=== PATIENT | male | born 1975 | race Caucasian/White ===

== ENCOUNTER → 2019-05-13 | Outpatient (CLI) | payer OTHER | END | disposition home or self-care (01) | LOC: LAB SHORT 18:25 → LAB EV 18:25 | DX: R50.9 Fever, unspecified (principal) | CPT/HCPCS: 87081 ==

== ENCOUNTER 2019-07-07 17:40 | Emergency (ER) | payer OTHER ==
[~2019-07-07] VITALS: Ht 177.8 cm; Wt 81.7 kg
[2019-07-07] MEDS ORDERED: Percocet 7.5-31 EACH PO (18:54)
== END 2019-07-07 19:08 | disposition home or self-care (01) ==
LOC: ER 17:40
DX: S22.42XA Multiple fractures of ribs, left side, initial encounter for closed fracture (principal); V86.59XA Driver of other special all-terrain or other off-road motor vehicle injured in nontraffic accident, initial encounter
CPT/HCPCS: 71101; 99284-25; A9270

== ENCOUNTER → 2021-01-08 | Outpatient (CLI) | payer OTHER ==
[~2021-01-08] MED LIST: PRED20 PO; Percocet 7.5-31 EACH PO; Tessalon200 MG PO; Ventolin/Prove6.7 GM INH
[2021-01-08 19:23] LABS: BASOPHILS ABSOLUTE AUTO 0.01 K/mm3 (0.00-0.23); BASOPHILS PERCENT AUTO 0 % (0-2); EOSINOPHILS PERCENT AUTO 0 % (0-6); Hematocrit 40.4 % (37.0-53.0); Hemoglobin 14.3 g/dL (13.5-17.5); IMMATURE GRAN ABSOLUTE AUTO 0.01 K/mm3 (0.00-0.10); IMMATURE GRAN PERCENT AUTO 0 % (0-1); LYMPHOCYTES ABSOLUTE AUTO 0.81 K/mm3 (0.84-5.20); LYMPHOCYTES PERCENT AUTO 13 % (21-46); MONOCYTES ABSOLUTE AUTO 0.26 K/mm3 (0.16-1.47); MONOCYTES PERCENT AUTO 4 % (4-13); Mean Corpuscular HGB Conc 35.4 g/dL (31.5-36.5); Mean Corpuscular Volume 88 fL (80-100); Mean Platelet Volume 9.1 fL (9.1-12.4); NEUTROPHILS ABSOLUTE AUTO 5.07 K/mm3 (1.96-9.15); NEUTROPHILS PERCENT AUTO 82 % (41-73); Platelet Count 165 K/mm3 (150-400); RDW Coefficient Variation 11.9 % (11.7-14.2); Red Blood Cell Count 4.61 M/mm3 (4.30-5.90); White Blood Cell Count 6.16 K/mm3 (4.00-11.30)
[2021-01-08 19:28] LABS: Alanine Aminotransfer (ALT/SGP 29 U/L (12-78); Albumin, Blood 3.4 g/dL (3.4-5.0); Albumin/Globulin Ratio 0.8 (0.8-1.8); Alk Phos 57 U/L (40-126); Anion Gap 5 mmol/L (6-16); Aspartate Aminotrans (AST/SGOT 27 U/L (12-37); Bilirubin, Total 0.8 mg/dL (0.1-1.0); Blood Urea Nitrogen 12 mg/dL (8-24); Bun/Creatinine Ratio 10.2 (12.0-20.0); CO2, Blood 29 mmol/L (21-32); Calcium, Blood 8.1 mg/dL (8.5-10.1); Chloride, Blood 96 mmol/L (98-108); Creatinine, Blood 1.18 mg/dL (0.60-1.20); Globulin, Blood 4.2 g/dL (2.2-4.0); Glomerular Filtration Rate >60 (60-); Glucose, Blood 134 mg/dL (70-99); Sodium, Blood 130 mmol/L (136-145); Total Protein, Blood 7.6 g/dL (6.4-8.2)
== END | disposition home or self-care (01) ==
LOC: LAB 19:14 → LAB SHORT 19:14
PROVIDERS: Physician Assistant
DX: U07.1 COVID-19 (principal); J12.82 Pneumonia due to coronavirus disease 2019
CPT/HCPCS: 80053; 85025; 85379

== ENCOUNTER 2021-01-10 09:07 | Inpatient (IN) | payer OTHER ==
[~2021-01-10] VITALS: Ht 177.8 cm; Wt 88.1 kg
[~2021-01-10 09:07] MED LIST changes: -PRED20 PO; -Tessalon200 MG PO; -Ventolin/Prove6.7 GM INH
[2021-01-10] MEDS ORDERED: Ventolin/Prove6.7 GM INH (09:50)
[2021-01-10] MEDS ORDERED: Tessalon200 MG PO (09:50)
[2021-01-10] MEDS ORDERED: PRED20 PO (09:51)
[2021-01-10 10:13] LABS: BASOPHILS ABSOLUTE AUTO 0.01 K/mm3 (0.00-0.23); BASOPHILS PERCENT AUTO 0 % (0-2); EOSINOPHILS PERCENT AUTO 0 % (0-6); Hematocrit 38.7 % (37.0-53.0); Hemoglobin 13.6 g/dL (13.5-17.5); IMMATURE GRAN ABSOLUTE AUTO 0.03 K/mm3 (0.00-0.10); IMMATURE GRAN PERCENT AUTO 0 % (0-1); LYMPHOCYTES ABSOLUTE AUTO 1.24 K/mm3 (0.84-5.20); LYMPHOCYTES PERCENT AUTO 13 % (21-46); MONOCYTES ABSOLUTE AUTO 0.44 K/mm3 (0.16-1.47); MONOCYTES PERCENT AUTO 5 % (4-13); Mean Corpuscular HGB 31.4 pg (26.0-34.0); Mean Corpuscular HGB Conc 35.1 g/dL (31.5-36.5); Mean Corpuscular Volume 89 fL (80-100); Mean Platelet Volume 8.7 fL (9.1-12.4); NEUTROPHILS ABSOLUTE AUTO 8.05 K/mm3 (1.96-9.15); NEUTROPHILS PERCENT AUTO 82 % (41-73); Platelet Count 196 K/mm3 (150-400); RDW Coefficient Variation 11.5 % (11.7-14.2); RDW Standard Deviation 37.2 fL (35.1-46.3); Red Blood Cell Count 4.33 M/mm3 (4.30-5.90); White Blood Cell Count 9.77 K/mm3 (4.00-11.30)
[2021-01-10 10:35] LABS: Alanine Aminotransfer (ALT/SGP 27 U/L (12-78); Albumin/Globulin Ratio 0.7 (0.8-1.8); Alk Phos 61 U/L (50-136); Anion Gap 7 mmol/L (6-16); Aspartate Aminotrans (AST/SGOT 31 U/L (12-37); Bilirubin, Total 0.7 mg/dL (0.1-1.0); Blood Urea Nitrogen 17 mg/dL (8-24); Bun/Creatinine Ratio 19.5 (12.0-20.0); CO2, Blood 26 mmol/L (21-32); Calcium, Blood 8.3 mg/dL (8.5-10.1); Chloride, Blood 101 mmol/L (98-108); Creatinine, Blood 0.87 mg/dL (0.60-1.20); Globulin, Blood 4.1 g/dL (2.2-4.0); Glomerular Filtration Rate >60 (60-); Glucose, Blood 123 mg/dL (70-99); Potassium, Blood 3.8 mmol/L (3.5-5.5); Sodium, Blood 134 mmol/L (136-145); Total Protein, Blood 7.1 g/dL (6.4-8.2); Troponin I <0.015 ng/mL (0.000-0.040)
--- NOTE | 2021-01-10 17:47 | NUR ---
SHIFT SUMMARY PT IS SITTING UP IN BED ON 9L OF 02 HIGHFLOW SATTING 97%. GOT UP TO WALK TO THE BATHROOM ON 02 AND DROPPED TO 80% AND DIZZY. O2 TURNED UP FROM 7L TO 9L TO COMPENSATE. PT VERBALIZED ANXIETY ABOUT NOT BEING ABLE TO CATCH HIS BREATH AND CHEST PAIN/TIGHTNESS, BUT FELT MORE COMFORTABLE ON 9L. PT EDUCATED ON HYPEROXYGENATION AND AGREES TO HAVE 02 MOVED DOWN WHEN HE IS CALM. WILL CONTINUE TO MONITOR
[2021-01-11 04:51] LABS: BASOPHILS PERCENT AUTO 0 % (0-2); EOSINOPHILS PERCENT AUTO 0 % (0-6); Hematocrit 36.5 % (37.0-53.0); Hemoglobin 12.7 g/dL (13.5-17.5); IMMATURE GRAN ABSOLUTE AUTO 0.03 K/mm3 (0.00-0.10); IMMATURE GRAN PERCENT AUTO 0 % (0-1); LYMPHOCYTES ABSOLUTE AUTO 0.88 K/mm3 (0.84-5.20); LYMPHOCYTES PERCENT AUTO 12 % (21-46); MONOCYTES PERCENT AUTO 6 % (4-13); Mean Corpuscular HGB 31.4 pg (26.0-34.0); Mean Corpuscular HGB Conc 34.8 g/dL (31.5-36.5); Mean Corpuscular Volume 90 fL (80-100); Mean Platelet Volume 9.1 fL (9.1-12.4); NEUTROPHILS ABSOLUTE AUTO 5.78 K/mm3 (1.96-9.15); NEUTROPHILS PERCENT AUTO 82 % (41-73); Platelet Count 233 K/mm3 (150-400); RDW Coefficient Variation 11.4 % (11.7-14.2); RDW Standard Deviation 37.8 fL (35.1-46.3); Red Blood Cell Count 4.05 M/mm3 (4.30-5.90); White Blood Cell Count 7.09 K/mm3 (4.00-11.30)
[2021-01-11 05:13] LABS: Alanine Aminotransfer (ALT/SGP 30 U/L (12-78); Albumin, Blood 2.7 g/dL (3.4-5.0); Albumin/Globulin Ratio 0.6 (0.8-1.8); Alk Phos 62 U/L (50-136); Anion Gap 3 mmol/L (6-16); Aspartate Aminotrans (AST/SGOT 30 U/L (12-37); Bilirubin, Total 0.6 mg/dL (0.1-1.0); Blood Urea Nitrogen 12 mg/dL (8-24); Bun/Creatinine Ratio 14.4 (12.0-20.0); CO2, Blood 30 mmol/L (21-32); Calcium, Blood 7.8 mg/dL (8.5-10.1); Chloride, Blood 101 mmol/L (98-108); Creatinine, Blood 0.84 mg/dL (0.60-1.20); Globulin, Blood 4.2 g/dL (2.2-4.0); Glomerular Filtration Rate >60 (60-); Glucose, Blood 120 mg/dL (70-99); Sodium, Blood 134 mmol/L (136-145); Total Protein, Blood 6.9 g/dL (6.4-8.2)
--- NOTE | 2021-01-11 06:07 | NUR ---
SHIFT SUMMARY PT IS A 45 Y/O MALE, ADMITTED FOR ACUTE HYPOXEMIC RESPIRATORY FAILURE R/T COVID-19. HE IS A&O X 4, 1PA TO THE BSC THOUGH VERY DYSPNEIC WITH EXERTION. CURRENTLY ON 12L O2 VIA NC, UP FROM 9L AT STAFT OF SHIFT, SATTING > 90%. VITAL SIGNS OTHERWISE STABLE. PT HAS INTERMITTENT COUGHING FITS, MEDICATED ONCE WITH PRN ROBITUSSIN. NO C/O ACUTE PAIN OR NAUSEA. PT'S UPDATED ON PT STATUS. NO OTHER ACUTE CHANGES IN PT CONDITION NOTED. WILL CONTINUE TO MONITOR AND TREAT PER EMAR UNTIL HAND OFF TO DAY SHIFT RN.
--- NOTE | 2021-01-11 10:23 | NUR ---
REPORTED TO BROTHER RIP [phone]
--- NOTE | 2021-01-11 15:06 | NUR ---
EDUCATED ON IS USE, PATIENT VERY HESITANT TO BREATH DEEP OR COUGH, THE IS WAS FAILED, PATIENT WAS UNABLE TO BREATH IN
[2021-01-12 05:44] LABS: BASOPHILS ABSOLUTE AUTO 0.01 K/mm3 (0.00-0.23); BASOPHILS PERCENT AUTO 0 % (0-2); EOSINOPHILS PERCENT AUTO 0 % (0-6); Hemoglobin 12.7 g/dL (13.5-17.5); Mean Corpuscular HGB 30.4 pg (26.0-34.0); Mean Corpuscular HGB Conc 34.3 g/dL (31.5-36.5); Mean Corpuscular Volume 89 fL (80-100); Mean Platelet Volume 9.1 fL (9.1-12.4); Platelet Count 316 K/mm3 (150-400); RDW Coefficient Variation 11.3 % (11.7-14.2); RDW Standard Deviation 36.2 fL (35.1-46.3); Red Blood Cell Count 4.18 M/mm3 (4.30-5.90)
[2021-01-12 05:52] LABS: IMMATURE GRAN ABSOLUTE AUTO 0.05 K/mm3 (0.00-0.10); IMMATURE GRAN PERCENT AUTO 1 % (0-1); LYMPHOCYTES ABSOLUTE AUTO 1.52 K/mm3 (0.84-5.20); LYMPHOCYTES PERCENT AUTO 16 % (21-46); MONOCYTES ABSOLUTE AUTO 0.92 K/mm3 (0.16-1.47); MONOCYTES PERCENT AUTO 10 % (4-13); NEUTROPHILS PERCENT AUTO 73 % (41-73)
[2021-01-12 06:16] LABS: Alanine Aminotransfer (ALT/SGP 32 U/L (12-78); Albumin, Blood 2.7 g/dL (3.4-5.0); Albumin/Globulin Ratio 0.7 (0.8-1.8); Alk Phos 56 U/L (50-136); Anion Gap 3 mmol/L (6-16); Aspartate Aminotrans (AST/SGOT 22 U/L (12-37); Bilirubin, Total 0.7 mg/dL (0.1-1.0); Blood Urea Nitrogen 15 mg/dL (8-24); Bun/Creatinine Ratio 16.9 (12.0-20.0); CO2, Blood 30 mmol/L (21-32); Calcium, Blood 8.4 mg/dL (8.5-10.1); Chloride, Blood 100 mmol/L (98-108); Creatinine, Blood 0.89 mg/dL (0.60-1.20); Globulin, Blood 3.8 g/dL (2.2-4.0); Glomerular Filtration Rate >60 (60-); Glucose, Blood 110 mg/dL (70-99); Sodium, Blood 133 mmol/L (136-145); Total Protein, Blood 6.5 g/dL (6.4-8.2)
[2021-01-12 06:37] LABS: BASOPHILS PERCENT MAN 0 % (0-2); EOSINOPHILS PERCENT MAN 0 % (0-6); LYMPHOCYTES ABSOLUTE MAN 1.02 K/mm3 (0.84-5.20); LYMPHOCYTES PERCENT MAN 11 % (21-46); MONOCYTES ABSOLUTE MAN 0.46 K/mm3 (0.16-1.47); MONOCYTES PERCENT MAN 5 % (4-13); NEUTROPHILS ABSOLUTE MAN 7.81 K/mm3 (1.96-9.15); SEG NEUTROPHILS PERCENT MAN 84 % (41-73); TOTAL CELLS COUNTED 100
--- NOTE | 2021-01-12 06:50 | NUR ---
45 byear old Male with covid 19 pneumonia hypoxia continues with BIOXX & 12 l high flow adequate to keep sats greater than 90%. Medicated for anxiety and insomnia at HS with 0.5 mg IV ativian & melatonin with good relief. IS & flutter enc. Support offered. PT reports too weak & deconditioned to ambulate.
--- NOTE | 2021-01-12 19:01 | NUR ---
Alert and oriented x3 , continue on high oxygen at 10L , 02sat at 76-100% , no SOB noted. PT/OT REPORTED significant improvement.Denies any headache , fever and SOB. CONTINUE to monitor.
--- NOTE | 2021-01-13 03:17 | NUR ---
45 year old PT with covid 19 pneumonia & hypoxia. Has wireless bioxx & weaned to 7 liters on day shift. Rust colored sputum, cough med helpful. PT able to be weaned to 4 l high flow o2 & PT has more effective resp pattern. Using IS & flutter. PT has decreased anxiety, medicated x 1 with ativan 0.5 mg IV. Working with PT & practicing exersizes at bedside as instucted. PT has personal sat monitor & has keeps pulse between 90& 95%. Nicanor diet & activity. HX of multiple broken ribs years ago. Recieving IV remdesiver
[2021-01-13 05:11] LABS: BASOPHILS ABSOLUTE AUTO 0.02 K/mm3 (0.00-0.23); BASOPHILS PERCENT AUTO 0 % (0-2); EOSINOPHILS ABSOLUTE AUTO 0.01 K/mm3 (0.00-0.68); EOSINOPHILS PERCENT AUTO 0 % (0-6); Hematocrit 37.2 % (37.0-53.0); Hemoglobin 12.9 g/dL (13.5-17.5); Mean Corpuscular HGB 30.6 pg (26.0-34.0); Mean Corpuscular HGB Conc 34.7 g/dL (31.5-36.5); Mean Corpuscular Volume 88 fL (80-100); Mean Platelet Volume 9.3 fL (9.1-12.4); Platelet Count 349 K/mm3 (150-400); RDW Coefficient Variation 11.3 % (11.7-14.2); RDW Standard Deviation 36.1 fL (35.1-46.3); Red Blood Cell Count 4.22 M/mm3 (4.30-5.90); White Blood Cell Count 9.69 K/mm3 (4.00-11.30)
--- NOTE | 2021-01-13 05:14 | NUR ---
had weaned PT back to 3 l high flow nasal cannula using bioxx. PT tolerated of around 3 hours then CO air hunger. Increased oxygen to 5 l high flow then gave PT ativan IV with immed helpful effect. Cough med also given. PT resting quietly. sent several packages of chocolate for staff. PT tolerating activity & diet, anxiety & air hunger controlled. Tolerates weaning of oxygen for long periods of time.
[2021-01-13 05:19] LABS: IMMATURE GRAN ABSOLUTE AUTO 0.11 K/mm3 (0.00-0.10); IMMATURE GRAN PERCENT AUTO 1 % (0-1); LYMPHOCYTES ABSOLUTE AUTO 2.84 K/mm3 (0.84-5.20); LYMPHOCYTES PERCENT AUTO 29 % (21-46); MONOCYTES ABSOLUTE AUTO 0.88 K/mm3 (0.16-1.47); MONOCYTES PERCENT AUTO 9 % (4-13); NEUTROPHILS ABSOLUTE AUTO 5.83 K/mm3 (1.96-9.15); NEUTROPHILS PERCENT AUTO 60 % (41-73)
[2021-01-13 05:36] LABS: Alanine Aminotransfer (ALT/SGP 40 U/L (12-78); Albumin, Blood 2.8 g/dL (3.4-5.0); Albumin/Globulin Ratio 0.7 (0.8-1.8); Alk Phos 57 U/L (50-136); Anion Gap 7 mmol/L (6-16); Aspartate Aminotrans (AST/SGOT 36 U/L (12-37); Bilirubin, Total 0.7 mg/dL (0.1-1.0); Blood Urea Nitrogen 15 mg/dL (8-24); Bun/Creatinine Ratio 16.1 (12.0-20.0); CO2, Blood 29 mmol/L (21-32); Calcium, Blood 8.6 mg/dL (8.5-10.1); Chloride, Blood 99 mmol/L (98-108); Creatinine, Blood 0.93 mg/dL (0.60-1.20); Globulin, Blood 3.8 g/dL (2.2-4.0); Glomerular Filtration Rate >60 (60-); Glucose, Blood 92 mg/dL (70-99); Potassium, Blood 3.8 mmol/L (3.5-5.5); Sodium, Blood 135 mmol/L (136-145); Total Protein, Blood 6.6 g/dL (6.4-8.2)
--- NOTE | 2021-01-13 18:43 | NUR ---
Alert and oriented x 3 , continue on remdevisir , no adverse effects noted. vital signs are stable. On 12L high flow , 02sat range from 92-97% , no SOB noted. Continue to monitor.
--- NOTE | 2021-01-14 01:36 | NUR ---
PT with covid 19 pneumonia continues on bioxx and high flow oxygen 10 l at change of shift. PT weaned to 7 l & could go lower but expresses anxiety over titration to tolerance. Has nonrebreather running at bedside & can use PRN for acute SOB with desats. Medicated for anxiety at HS with IV ativan 0.5 mg with helpful effect. Tolerating diet & activity. Starting on oral steroids in AM with HS glucose 140. encouraged prone sleeping tid, PT says anxiety about it but does at HS. Continues in inhanced droplet contact isolation for covid 19.
[2021-01-14 05:09] LABS: BASOPHILS ABSOLUTE AUTO 0.04 K/mm3 (0.00-0.23); BASOPHILS PERCENT AUTO 0 % (0-2); EOSINOPHILS ABSOLUTE AUTO 0.04 K/mm3 (0.00-0.68); EOSINOPHILS PERCENT AUTO 0 % (0-6); Hematocrit 40.3 % (37.0-53.0); Hemoglobin 13.8 g/dL (13.5-17.5); IMMATURE GRAN ABSOLUTE AUTO 0.32 K/mm3 (0.00-0.10); IMMATURE GRAN PERCENT AUTO 3 % (0-1); LYMPHOCYTES ABSOLUTE AUTO 3.51 K/mm3 (0.84-5.20); LYMPHOCYTES PERCENT AUTO 29 % (21-46); MONOCYTES ABSOLUTE AUTO 1.14 K/mm3 (0.16-1.47); MONOCYTES PERCENT AUTO 9 % (4-13); Mean Corpuscular HGB 30.5 pg (26.0-34.0); Mean Corpuscular HGB Conc 34.2 g/dL (31.5-36.5); Mean Corpuscular Volume 89 fL (80-100); Mean Platelet Volume 9.1 fL (9.1-12.4); NEUTROPHILS ABSOLUTE AUTO 7.24 K/mm3 (1.96-9.15); NEUTROPHILS PERCENT AUTO 59 % (41-73); Platelet Count 383 K/mm3 (150-400); RDW Coefficient Variation 11.4 % (11.7-14.2); RDW Standard Deviation 36.7 fL (35.1-46.3); Red Blood Cell Count 4.53 M/mm3 (4.30-5.90); White Blood Cell Count 12.29 K/mm3 (4.00-11.30)
[2021-01-14 06:01] LABS: Anion Gap 7 mmol/L (6-16); Blood Urea Nitrogen 16 mg/dL (8-24); Bun/Creatinine Ratio 15.8 (12.0-20.0); CO2, Blood 29 mmol/L (21-32); Calcium, Blood 8.6 mg/dL (8.5-10.1); Chloride, Blood 99 mmol/L (98-108); Creatinine, Blood 1.01 mg/dL (0.60-1.20); Glomerular Filtration Rate >60 (60-); Glucose, Blood 114 mg/dL (70-99); Potassium, Blood 3.6 mmol/L (3.5-5.5); Sodium, Blood 135 mmol/L (136-145)
--- NOTE | 2021-01-14 14:27 | NUR ---
Spiritual Care Visit conducted. 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 We had a nice visit about his work and how he came to be in [place]. He was very appreciative.
--- NOTE | 2021-01-14 18:38 | NUR ---
Alert and oriented x3 , continue on high flow oxygen at 6L , sp02 at 90 to 95% , no SOB noted. Worked with PT for strength and endurance, improving. Denies any pain, headache , dizziness and SOB. One person assist with ADLS . Continue to monitor.
--- NOTE | 2021-01-15 03:00 | NUR ---
SHIFT SUMMARY NO ACUTE CHANGES TO REPORT THIS SHIFT. PT HAS RESTED MOST OF THE NIGHT, PT ON 6L O2 T/O THE NIGHT AND HAS TOLERATED WELL. PT DENIES SOB, AND HAS BEEN INDEPENDENT IN THE ROOM. PRODUCTIVE COUGH WITH CLEAR SPUTUM. PLAN IS FOR DC TODAY. BED IN LOWEST POSITION, CALL LIGHT WITHIN REACH.
--- NOTE | 2021-01-15 15:18 | NUR ---
SHIFT SUMMARY PATIENT IS ALERT AND ORIENTED X4 UP AD LID. DR LINK TELE ROUNDED AND STATED " TRY WEANING PATIENT TO 4L NC IF SUCCESSFUL WALK TEST ORDER CAN BE ORDERED AND PATIENT GETS DISCHARGED. OYGEN WEANED TO 4L SATURATION 93-95%. PATIENT HAD NO COMPLAINTS IN STABLE CONDITION. WALK TEST COMPLETED AWAITING OXYGEN DELIVERY.
[2021-01-15] MEDS ORDERED: DEXA6 PO (17:07)
[2021-01-15] MEDS ORDERED: ACET325 PO (17:09)
[2021-01-15] MEDS ORDERED: Q-Tussin100 MG/5 M PO (17:10)
[2021-01-15] MEDS ORDERED: PANT40 PO (17:11)
[2021-01-15] MEDS ORDERED: NASAL SPRAY88 ML (17:13)
--- NOTE | 2021-01-15 18:58 | NUR ---
PT DISCHARGED TO HOME WITH HOME HEALTH VIA WHEELCHAIR. DISCHARGE INSTRUCTION READ AND PACKET GIVEN TO PATIENT. [facility] BY [facility]. PATIENT DEAPRTED THE UNIT IN STABLE CONDITION.
== END 2021-01-15 19:10 | disposition home health service (06) | DRG 177 ==
LOC: ER 09:07 → MEDS 10:55
PROVIDERS: Family Medicine; Internal Medicine; Physician Assistant; ADMIT Hospitalist
PROC: 8E0ZXY6 Isolation (ICD-10-PCS; principal; 2021-01-10)
PROC: 3E0333Z Introduction of Anti-inflammatory into Peripheral Vein, Percutaneous Approach (ICD-10-PCS; 2021-01-10)
PROC: XW033E5 Introduction of Remdesivir Anti-infective into Peripheral Vein, Percutaneous Approach, New Technology Group 5 (ICD-10-PCS; 2021-01-10)
DX: U07.1 COVID-19 (principal); J12.82 Pneumonia due to coronavirus disease 2019; J96.01 Acute respiratory failure with hypoxia; E87.1 Hypo-osmolality and hyponatremia; R19.7 Diarrhea, unspecified; D72.810 Lymphocytopenia; F41.9 Anxiety disorder, unspecified; F17.210 Nicotine dependence, cigarettes, uncomplicated
CPT/HCPCS: 36415; 71045; 71260; 80048; 80053; 82728; 82947; 84484; 85025; 85379; 86141; 93005; 93010; 94640; 94761; 94762; 97110; 97116; 97161; 97166; 97530; 99285-25; A9270; J1100; J1650; J2060; J7030; Q9967